=== PATIENT | female | born 1960 | race Caucasian/White ===

== ENCOUNTER → 2018-01-20 | Outpatient (CLI) | payer OTHER ==
[~2018-01-20] MED LIST: BARIUM SULFATE 176 GM BTL PO ONE; BARIUM SULFATE 340 GM POWD ONE
--- NOTE | 2018-01-20 16:49 | RADIOLOGY IMAGING REPORT ---
FACILITY: [facility] PATIENT NAME: Taylor Nino : 1960 MR: [id number] V: [id number] EXAM DATE: ORDERING PHYSICIAN: LONNY MEDEIROS TECHNOLOGIST: Location: [facility] Patient: Taylor Nino : 1960 Visit/Account:[id number] Date of Sevice: 01/20/2018 Exam type: UPPER GI SERIES W/O AIR History: Cough x6 weeks possible acid reflux Comparison: None. Findings: Double contrast upper GI series was performed with thick and thin barium. There was no demonstration of a hiatal hernia, esophageal mucosal erosion or stricture. No demonstration of gastroesophageal r eflux at this time. No abnormality of the stomach or duodenal bulb was seen. Incidentally noted is a diverticulum extending from the second portion the duodenum and several jejunal diverticula. The f luoroscopy dose area product was 544.95 micro-Butts per meter squared IMPRESSION: 1. No demonstration of gastroesophageal reflux, mucosal erosion within the esophagus or stricture Incidental note of duodenal and jejunal diverticula Report Dictated By: Zoë Jenkins MD at 01/20/2018 4:43 PM Report E-Signed By: Zoë Jenkins MD at 01/20/2018 4:45 PM WSN:[email or web address]
== END ==
LOC: RAD 01:10
PROVIDERS: ATTEND Family Medicine
DX: K57.10 Diverticulosis of small intestine without perforation or abscess without bleeding (principal)
CPT/HCPCS: 74240

== ENCOUNTER → 2018-01-22 | Outpatient (CLI) | payer OTHER ==
--- NOTE | 2018-01-22 12:11 | RADIOLOGY IMAGING REPORT ---
FACILITY: [facility] PATIENT NAME: Taylor Nino : 1960 MR: [id number] V: [id number] EXAM DATE: ORDERING PHYSICIAN: LONNY MEDEIROS TECHNOLOGIST: Location[place] [facility] [place] Patient: Taylor Nino : 1960 Visit/Account:[id number] Date of Sevice: 01/22/2018 Exam type: CHEST PA AND LAT History: Cough x6 weeks, nonsmoker Comparison: None. Findings: The lungs are free of acute effusions, infiltrates or edema. The cardiac silhouette is normal in siz e. The trachea is in midline. There is a very gentle dextroconvex scoliosis of the thoracic spine. Incidentally noted is barium in the colon from patient's recent upper GI series IMPRESSION: 1. No acute cardiopulmonary process is seen Incidental note of barium in the colon from patient's recent upper GI series Report Dictated By: Zoë Jenkins MD at 01/22/2018 12:06 PM Report E-Signed By: Zoë Jenkins MD at 01/22/2018 12:08 PM WSN:[email or web address]
== END ==
LOC: RAD 11:16
PROVIDERS: ATTEND Family Medicine
DX: M41.84 Other forms of scoliosis, thoracic region (principal)
CPT/HCPCS: 71046

== ENCOUNTER → 2018-09-22 | Outpatient (CLI) | payer OTHER ==
--- NOTE | 2018-09-22 15:05 | RADIOLOGY IMAGING REPORT ---
FACILITY: [facility] PATIENT NAME: Taylor Nino : 1960 MR: [id number] V: [id number] EXAM DATE: ORDERING PHYSICIAN: LONNY MEDEIROS TECHNOLOGIST: [place] [facility] [place]: Taylor Nino : 1960 Visit/Account:[id number] Date of Sevice: 09/22/2018 ULTRASOUND THYROID HISTORY: Nodules hypothyroidism COMPARISON: September 02, 2017 thyroid ultrasound FINDINGS: SIZE: Normal. Right lobe: 0.9 x 1.0 x 2.5 cm Left lobe: 0.9 x 1.3 x 3.7 cm Isthmus: 1 mm PARENCHYMA: Homogeneous. NODULES: Right lobe: * A 1.1 cm solid hypoechoic oval circumscribed nodule in the lower pole (image 22) is stable. There are no new nodules. There is a benign 5 mm cyst in the upper pole. Left lobe: * Dominant nodule in the upper pole is a 1.0 cm isoechoic oval circumscribed nodule (image 46) which is stable. * An isoechoic 9 mm mid pole nodule (image 49) is stable (closer to 10 mm previously). * No additional nodule with a high suspicion sonographic pattern or measuring greater than or equal to 1 cm. Additional subcentimeter isoechoic nodules in the lower pole. Isthmus: * None discrete. VASCULARITY: Within normal limits. ADDITIONAL FINDINGS: None. IMPRESSION: Multinodular goiter with no significant change compared to September 02, 2017. The dominant nodules ar e stable. There are no nodules which would meet current EULA criteria for fine-needle aspiration. REFERENCE: 2015 [place] [employer] Management Guidelines for Adult Patients with Thyroid Nodules and D ifferentiated Thyroid Cancer: The [place] [employer] Guidelines Task Force on Thyroid Nodul es and Differentiated Thyroid Cancer. SONOGRAPHIC PATTERNS: * Benign: Purely cystic nodules (no solid component); estimated risk of malignancy <1 percent; no bi opsy recommended. * Very Low Suspicion: Spongiform or partially cystic nodules without any of the sonographic features described in low, intermediate, or high suspicion patterns; estimated risk of malignancy <3 percent; consider FNA at > 2 cm (Observation without FNA is also a reasonable option). * Low Suspicion: Isoechoic or hyperechoic solid nodule, or partially cystic nodule with eccentric so lid areas, without microcalcification, irregular margin or ETE (extra-thyroidal extension), or taller than wide shape; estimated risk of malignancy 5-10 percent; recommend FNA at >1.5 cm. * Intermediate Suspicion: Hypoechoic solid nodule with smooth margins without microcalcifications, E TE (extra-thyroidal extension), or taller than wide shape; estimated risk of malignancy 10-20 percent ; recommend FNA at > 1 cm. * High Suspicion: Solid hypoechoic nodule or solid hypoechoic component of a partially cystic nodule with one or more of the following features: irregular margins (infiltrative, microlobulated), microc alcifications, taller than wide shape, rim calcifications with small extrusive soft tissue component, evidence of ETE (extra-thyroidal extension); estimated risk of malignancy >70-90 percent; recommend FNA at > 1 cm. NOTES: * Although a sonographically suspicious subcentimeter thyroid nodule without evidence of extrathyroi kevyn extension or sonographically suspicious lymph nodes may be observed with close sonographic follow -up rather than pursuing immediate FNA, patient age and preference may modify decision-making. * A > 50% interval increase in nodule volume and/or development of new suspicious sonographic featur es are felt to be a valid reasons for potential re-aspiration of a nodule previously shown to have be nign FNA cytology. Report Dictated By: Renny Rodriguez at 09/22/2018 2:49 PM Report E-Signed By: Renny Rodriguez at 09/22/2018 3:01 PM WSN:[email or web address]
== END ==
LOC: US 00:31
PROVIDERS: ATTEND Family Medicine
DX: E04.2 Nontoxic multinodular goiter (principal); E03.9 Hypothyroidism, unspecified
CPT/HCPCS: 76536

== ENCOUNTER → 2018-11-16 | Outpatient (CLI) | payer OTHER ==
--- NOTE | 2018-11-18 16:26 | RADIOLOGY IMAGING REPORT ---
FACILITY: [facility] [place] PATIENT NAME: ANDRES JACKSON : [id number] MR: [id number] V: [id number] EXAM DATE: ORDERING PHYSICIAN: LONNY MEDEIROS TECHNOLOGIST: Megan Tsai PROCEDURE:BILATERAL DIGITAL SCREENING MAMMOGRAM WITH CAD ASSISTED INTERPRETATION & 3D TOMOSYNTHESIS COMPARISON:Prior mammograms 11/13/17, 08/01/16, 02/20/15, 02/08/15. INDICATIONS:screening FINDINGS: There are scattered areas of fibroglandular density throughout both breasts. The parenchymal pattern has remained stable allowing for difference in mammographic technique & patient positioning. DIAGNOSTIC CATEGORY 1--NEGATIVE. RECOMMENDATIONS: ROUTINE MAMMOGRAM AND CLINICAL EVALUATION. IMPRESSION: BIRADS 1: Negative. No significant abnormality is seen. Dictated by: Zoë Jenkins M.D. on 11/18/2018 at 9:34 Transcribed by: АННА on 11/18/2018 at 9:45 Approved by: Zoë Jenkins M.D. on 11/18/2018 at 16:25 [facility]
== END ==
LOC: MAMO 03:47
PROVIDERS: ATTEND Family Medicine
DX: Z12.31 Encounter for screening mammogram for malignant neoplasm of breast (principal)
CPT/HCPCS: 77063; 77067

== ENCOUNTER → 2019-06-25 | Outpatient (CLI) | payer OTHER ==
[2019-06-25 14:49] LABS: INR 0.86
== END ==
LOC: LAB 13:58
PROVIDERS: ATTEND Internal Medicine
DX: R74.8 Abnormal levels of other serum enzymes (principal); R79.89 Other specified abnormal findings of blood chemistry
CPT/HCPCS: 36415; 81256; 82103; 82104; 82390; 82784; 83516; 85610; 86038; 87340